=== PATIENT | male | born 1970 | race Caucasian/White ===

== ENCOUNTER 2018-01-18 13:59 | Emergency (ER) | payer OTHER ==
[~2018-01-18] VITALS: Ht 180.3 cm; Wt 98.4 kg
[~2018-01-18 13:59] MED LIST: ALBUTEROL2.5 MG/31 INH; ALEVE220 MG; ALEVE220 MG PO; CARISOPRODOL 3350 MG PO; CIPRO250 M1 PO; CIPROFLOXACIN500 M1 PO; CRUTCH1 EACH MC; CYCLOBENZAPRINE5 MG PO; DILAUDID 2 MG TA2 MG PO; FLEXERIL PO; HYDROCHLOROTH12.5 M1 PO; HYDROCODONE-AP1 EAC6 PO; IBUPROFEN 200200 M1 PO; IBUPROFEN 600600 M1 PO; IBUPROFEN 800800 M1 PO; LISINOPRIL-HCT1 EACH; LISINOPRIL10 MG PO; MEDROLDOSEPACK PO; NAPROSYN500 MG PO; NOHOMEMEDICATIONS; NORCO 5-325 TA1 EACH PO; NORFLEX100 MG PO; PREDNISONE 20 M20 M1 PO; PRINIVIL20 MG PO; PROAIR HFA8.5 GM INH; ROBAXIN500 MG PO; TORADOL 10 MG T10 MG PO; TRAMADOL 50 MG50 MG PO; ULTRAM 50MG TAB50 MG PO; VALIUM2 MG PO; ZPAK PO; ZYRTEC10 MG PO
[2018-01-18] MEDS ORDERED: LISINOPRIL-HCT1 EACH PO (14:08)
[2018-01-18] MEDS ORDERED: NAPROSYN500 MG PO (14:08)
[2018-01-18] MEDS ORDERED: HYDROCODONE-AP1 EAC6 PO (15:04)
[2018-01-18 15:13] VITALS: BP 135/102
== END 2018-01-18 15:14 | disposition home or self-care (01) ==
LOC: M.ERS 13:59
DX: S46.912A Strain of unspecified muscle, fascia and tendon at shoulder and upper arm level, left arm, initial encounter (principal); F17.210 Nicotine dependence, cigarettes, uncomplicated; Z87.442 Personal history of urinary calculi; Z88.0 Allergy status to penicillin; X58.XXXA Exposure to other specified factors, initial encounter; Y93.89 Activity, other specified; Y92.89 Other specified places as the place of occurrence of the external cause; Y99.8 Other external cause status

== ENCOUNTER 2020-07-19 10:01 | Emergency (ER) | payer OTHER ==
[~2020-07-19] VITALS: Ht 180.3 cm; Wt 88.0 kg
[~2020-07-19 10:01] MED LIST changes: +LISINOPRIL-HCT1 EACH PO
[2020-07-19] MEDS ORDERED: NORCO 5-325 TA1 EAC2 PO (11:32)
[2020-07-19] MEDS ORDERED: NAPROSYN500 MG PO (11:32)
[2020-07-19 11:57] VITALS: BP 147/106
== END 2020-07-19 11:59 | disposition home or self-care (01) ==
LOC: M.ERS 10:01
DX: S20.212A Contusion of left front wall of thorax, initial encounter (principal); M94.0 Chondrocostal junction syndrome [Tietze]; I10 Essential (primary) hypertension; F17.210 Nicotine dependence, cigarettes, uncomplicated; Z88.0 Allergy status to penicillin; Z87.442 Personal history of urinary calculi; X50.9XXA Other and unspecified overexertion or strenuous movements or postures, initial encounter; Y93.89 Activity, other specified; Y92.89 Other specified places as the place of occurrence of the external cause; Y99.8 Other external cause status